=== PATIENT | female | born 1950 | race Caucasian/White ===

== ENCOUNTER 2018-09-29 17:56 | Emergency (ER) | payer MEDICARE, OTHER ==
[~2018-09-29] VITALS: Ht 144.7 cm; Wt 74.4 kg
[2018-09-29] MEDS ORDERED: PLAVIX75 M1 PO (18:09)
[2018-09-29] MEDS ORDERED: CEFADROXIL500 M1 PO (19:16)
== END 2018-09-29 19:30 | disposition home or self-care (01) ==
LOC: ED 17:56
DX: S62.635B Displaced fracture of distal phalanx of left ring finger, initial encounter for open fracture (principal); Z79.899 Other long term (current) drug therapy; W23.0XXA Caught, crushed, jammed, or pinched between moving objects, initial encounter; Y93.89 Activity, other specified; Y92.89 Other specified places as the place of occurrence of the external cause; Y99.8 Other external cause status